=== PATIENT | female | born 1940 | race Two or more races ===

== ENCOUNTER 2022-11-28 16:55 | Emergency (ER) | payer OTHER ==
[~2022-11-28] VITALS: Ht 160 cm; Wt 59.9 kg
--- NOTE | 2022-11-28 17:15 | NUR ---
THROAT DISCOMFORT X 4 WEEKS, POSSIBLE FOREIGN BODY S/P EATING CHICKEN DENIES SOB. ON AN ESCALATOR. BG 419, GIVEN 1/2 L NS KIER BOILER.
[2022-11-28] MEDS ORDERED: HYDROCODONE/APAP 5/325MG TABLET ONE (17:29)
[2022-11-28] MEDS: IBUPROFEN 600 MG TABLET PO ONE (17:30)
[2022-11-28] MEDS: HYDROCODONE/APAP 5/325MG TABLET PO ONE (17:30)
[2022-11-28] MEDS ORDERED: IBUPROFEN 600 MG TABLET ONE (17:30)
--- NOTE | 2022-11-28 17:39 | NUR ---
technical supervisor at bedside
--- NOTE | 2022-11-28 17:39 | NUR ---
medicated as order
--- NOTE | 2022-11-28 17:46 | NUR ---
TAKEN TO CT
--- NOTE | 2022-11-28 19:00 | NUR ---
wound care performed by PA student at bedside
--- NOTE | 2022-11-28 19:15 | NUR ---
Pt is noted in bed alert, responsive with family at bedside as [facility] Pt was brought in C/O JHead , Lower Back, Right shoulder and BLE pain due to S/P Falling Backwards on An Escalator with Blood Guloce off 419 and 1.2Liters was given in Field. Pt care continue.
--- NOTE | 2022-11-28 20:30 | NUR ---
Pt is noted off the unit with family as she is been discharge to home with all discharge instructions given. Pt care continue.
[2022-11-28 21:03] VITALS: BP 138/70
== END 2022-11-28 21:00 | disposition home or self-care (01) ==
LOC: ER 16:56
DX: S39.012A Strain of muscle, fascia and tendon of lower back, initial encounter (principal); S40.011A Contusion of right shoulder, initial encounter; S00.01XA Abrasion of scalp, initial encounter; E11.9 Type 2 diabetes mellitus without complications; Z79.4 Long term (current) use of insulin; W10.0XXA Fall (on)(from) escalator, initial encounter; Y93.89 Activity, other specified; Y92.89 Other specified places as the place of occurrence of the external cause; Y99.8 Other external cause status
CPT/HCPCS: 99284; 72125; 73030; 70450; 72131; A6403